=== PATIENT | female | born 1965 | race African-American/Black ===

== ENCOUNTER 2016-08-19 23:27 | Emergency (ER) | payer OTHER ==
[~2016-08-19] VITALS: Ht 170.2 cm; Wt 91.0 kg
[~2016-08-19 23:27] MED LIST: AMLO10TA4 PO; HYDR12.529 PO; MINO2.5T2 PO; ONDA4TAB51 PO; SERT50TA12 PO; SUCR1TAB PO
[2016-08-19] MEDS ORDERED: ALBUTEROL (0.083%) 2.5MG/3ML NEB HHN STA (23:46)
[2016-08-19] MEDS ORDERED: IPRATROPIUM BROMIDE (0.02%) 0.5MG/2.5ML NEB HHN STA (23:46)
[2016-08-19] MEDS ORDERED: PREDNISONE 20MG TABLET PO STA (23:46)
[2016-08-20 01:00] VITALS: BP 131/81
== END 2016-08-20 01:25 | disposition home or self-care (01) ==
LOC: ER 23:27
DX: J06.9 Acute upper respiratory infection, unspecified (principal); I10 Essential (primary) hypertension; K21.9 Gastro-esophageal reflux disease without esophagitis; F17.210 Nicotine dependence, cigarettes, uncomplicated; F12.10 Cannabis abuse, uncomplicated; Z98.890 Other specified postprocedural states; Z87.11 Personal history of peptic ulcer disease; Z88.8 Allergy status to other drugs, medicaments and biological substances; Z71.6 Tobacco abuse counseling
CPT/HCPCS: 71010; 94640; 99283; 99406; J7512; J7611; Z7610

== ENCOUNTER 2016-09-05 12:24 | Inpatient (IN) | payer OTHER ==
[~2016-09-05] VITALS: Ht 167.6 cm; Wt 90.7 kg
[2016-09-05] MEDS ORDERED: FAMOTIDINE 20MG/2ML VIAL IV ONE (12:45)
[2016-09-05] MEDS ORDERED: DICYCLOMINE HCL 10MG CAPSULE PO ONE (12:45)
[2016-09-05] MEDS ORDERED: VISCOUS LIDOCAINE 2% 15 ML UDC PO STA (12:45)
[2016-09-05] MEDS ORDERED: MAGNESIUM/ALUMINUM HYDROXIDE/SIMETHICONE 30ML UDC PO STA (12:45)
[2016-09-05] MEDS ORDERED: ONDANSETRON HCL 4MG/2ML VIAL IV STA (12:45)
[2016-09-05 12:58] LABS: BASOPHILS % 0.8 % (0.0-2.0); EOSINOPHILS % 4.6 % (0.0-5.0); HEMATOCRIT. 49.2 % (36.0-48.0); HEMOGLOBIN. 16.6 g/dL (12.0-16.0); LYMPHOCYTES % 55.6 % (20.0-50.0); MEAN CORPUSCULAR HEMOGLOBIN 27.6 pg (28.0-32.0); MEAN CORPUSCULAR HGB CONC 33.7 g/dL (31.0-37.0); MEAN CORPUSCULAR VOLUME 82.1 fL (81.0-99.0); MEAN PLATELET VOLUME 7.2 fl (7.4-10.4); MONOCYTES % 5.3 % (2.0-8.0); NEUTROPHILS % 33.7 % (40.0-76.0); PLATELET 453 x1000/uL (130-400); RED CELL DISTRIBUTION WIDTH 15.3 % (11.6-14.6); WHITE BLOOD COUNT 10.4 x1000/uL (4.5-11.0)
[2016-09-05 13:07] LABS: ALBUMIN 3.9 g/dL (3.4-5.0); ANION GAP 14; CALCIUM 9.7 mg/dL (8.5-10.1); CARBON DIOXIDE 24 mEq/L (21-32); CHLORIDE 108 mEq/L (98-107); ETHANOL BLOOD < 10 mg/dL; INDEX HEMOLYSI 4 (1-3); INDEX ICTERIC 1 (1-4); INDEX LIPEMIC 1 (1-3); LIPASE 116 IU/L (73-393); UREA NITROGEN BLOOD 8 mg/dL (7-21)
[2016-09-05 13:10] LABS: ALANINE AMINOTRANSFERASE 27 IU/L (13-61); eGFR > 60 mL/min (>60)
[2016-09-05 13:15] LABS: CLARITY URINE CLOUDY (CLEAR); COLOR URINE YELLOW (YELLOW); GLUCOSE URINE NEGATIVE (NEGATIVE); KETONES URINE NEGATIVE (NEGATIVE); LEUKOCYTE ESTERASE URINE NEGATIVE (NEGATIVE); NITRITE URINE NEGATIVE (NEGATIVE); OCCULT BLOOD URINE NEGATIVE (NEGATIVE); PROTEIN URINE TRACE (NEGATIVE); SPECIFIC GRAVITY URINE 1.017 (1.005-1.030)
[2016-09-05] MEDS ORDERED: ONDANSETRON HCL 4MG/2ML VIAL IV PRN ×2 (13:15→20:45)
[2016-09-05] MEDS: MORPHINE SULFATE 4 MG/ML CPJ (NOT FOR IM USE) IV PRN ×2 (13:24→15:33)
[2016-09-05 13:25] LABS: *AMPHETAMINES SCREEN URINE NEGATIVE (NEGATIVE); *BARBITURATES SCREEN URINE NEGATIVE (NEGATIVE); *BENZODIAZEPINES SCREEN URINE NEGATIVE (NEGATIVE); *COCAINE SCREEN URINE NEGATIVE (NEGATIVE); CANNABINOID URINE SCREEN PRESUMTIVE POSITIVE (NEGATIVE); ECSTASY MDMA SCREEN URINE NEGATIVE (NEGATIVE); METHADONE URINE SCREEN NEGATIVE (NEGATIVE); OPIATES URINE SCREEN NEGATIVE (NEGATIVE); PHENCYCLIDINE URINE SCREEN NEGATIVE (NEGATIVE)
[2016-09-05 13:27] LABS: WBC URINE 0-2 /hpf (0-2)
[2016-09-05 13:28] LABS: BACTERIA URINE 1+; RBC URINE NONE SEEN /hpf (0-2); SQUAMOUS EPITHELIAL CELL URINE 1+ /lpf (RARE/1+)
[2016-09-05] MEDS ORDERED: METOCLOPRAMIDE HCL 10MG/2ML VIAL IV ONE (14:15)
[2016-09-05] MEDS ORDERED: LABETALOL HCL 20MG/4ML CARPUJECT IV PRN ×2 (15:45→16:30)
[2016-09-05] MEDS ORDERED: LABETALOL 5MG/ML SYR 20 MG/4 ML SYRINGE IV PRN (16:30)
[2016-09-05 18:30] VITALS: BP 167/100
[2016-09-05] MEDS ORDERED: PANT40TA4 PO (19:47)
[2016-09-05] MEDS ORDERED: DICY10CA88 PO (19:47)
[2016-09-05 20:00] VITALS: BP 177/107
[2016-09-05] MEDS ORDERED: CLONIDINE 0.1MG TABLET PO PRN (20:45)
[2016-09-05] MEDS: HYDROMORPHONE HCL/PF 2MG/ML CPJ IV PRN (20:52)
[2016-09-05] MEDS ORDERED: ZOLPIDEM TARTRATE 5MG TABLET PO PRN (21:15)
[2016-09-05] MEDS ORDERED: CLONIDINE 0.2MG TABLET PO PRN (21:15)
[2016-09-05] MEDS: SUCRALFATE 1G TABLET PO SCH (22:14)
[2016-09-05] MEDS: DEXT 5%/0.45% NACL KCL 20MEQ/L 1,000 ML IV SCH (22:14)
[2016-09-05 22:32] VITALS: BP 170/100
[2016-09-06] VITALS: BP 128/88
[2016-09-06] MEDS: SUCRALFATE 1G TABLET PO SCH ×2 (02:53→08:26)
[2016-09-06 04:00] VITALS: BP 122/76
[2016-09-06 07:05] LABS: HEMATOCRIT 43.4 % (36.0-48.0); HEMOGLOBIN 14.3 g/dL (12.0-16.0); MEAN CORPUSCULAR HGB CONC 32.9 g/dL (31.0-37.0); MEAN CORPUSCULAR VOLUME 82.2 fL (81.0-99.0); PLATELET 367 x1000/uL (130-400); RED BLOOD CELL COUNT 5.28 mill/uL (4.2-5.4); RED CELL DISTRIBUTION WIDTH 14.8 % (11.6-14.6); WHITE BLOOD COUNT 11.8 x1000/uL (4.5-11.0)
[2016-09-06 08:00] VITALS: BP 145/94
[2016-09-06 08:08] LABS: ALANINE AMINOTRANSFERASE 22 IU/L (13-61); ALBUMIN 3.5 g/dL (3.4-5.0); ANION GAP 11; CALCIUM 8.9 mg/dL (8.5-10.1); CARBON DIOXIDE 26 mEq/L (21-32); CHLORIDE 107 mEq/L (98-107); HDL CHOLESTEROL 61 mg/dL (40-59); INDEX HEMOLYSI 1 (1-3); INDEX ICTERIC 1 (1-4); INDEX LIPEMIC 1 (1-3); LDL CHOLESTEROL 161 mg/dL (5-100); TRIGLYCERIDE 119 mg/dL (0-150); UREA NITROGEN BLOOD 10 mg/dL (7-21); eGFR > 60 mL/min (>60)
[2016-09-06 08:10] LABS: THYROID STIMULATING HORMONE 0.52 uIU/mL (0.36-3.74)
[2016-09-06] MEDS: HYDROMORPHONE HCL/PF 2MG/ML CPJ IV PRN ×2 (08:12→12:54)
[2016-09-06] MEDS: DEXT 5%/0.45% NACL KCL 20MEQ/L 1,000 ML IV SCH (08:25)
[2016-09-06] MEDS ORDERED: HYDROCHLOROTHIAZIDE 12.5MG CAPSULE PO SCH (09:00)
[2016-09-06] MEDS ORDERED: ENOXAPARIN 30MG/0.3ML SYR SUBCUT SCH (09:00)
[2016-09-06] MEDS ORDERED: ENOXAPARIN 40MG/0.4ML SYR SUBCUT SCH (09:00)
[2016-09-06] MEDS ORDERED: MINOXIDIL 2.5MG TABLET PO SCH (09:00)
[2016-09-06] MEDS ORDERED: SERTRALINE HCL 50MG TABLET PO SCH (09:00)
[2016-09-06] MEDS ORDERED: AMLODIPINE 10MG TABLET PO SCH (09:00)
[2016-09-06] MEDS ORDERED: FAMOTIDINE 20MG/2ML VIAL IV SCH (09:00)
[2016-09-06 12:00] VITALS: BP 150/92
[2016-09-06] MEDS: CLONIDINE HCL 0.1MG/24HR PATCH TD NR ×2 (12:30→14:16)
[2016-09-06 13:24] VITALS: BP 145/94
[2016-09-06] MEDS ORDERED: METOCLOPRAMIDE HCL 10MG/2ML VIAL IV SCH (18:00)
== END 2016-09-06 13:30 | disposition home or self-care (01) | DRG 251 ==
LOC: ER 12:35 → 5WST 18:44
PROVIDERS: ADMIT Internal Medicine; ATTEND Internal Medicine
DX: R10.9 Unspecified abdominal pain (principal); I10 Essential (primary) hypertension; K21.9 Gastro-esophageal reflux disease without esophagitis; K29.70 Gastritis, unspecified, without bleeding; Z88.8 Allergy status to other drugs, medicaments and biological substances
CPT/HCPCS: 36415; 80053; 80061; 80305; 81001; 81025; 83690; 84443; 85025; 85027; 96374; 96375; 96376; 99285; G0482; J1170; J1650; J2270; J2405; J2765; J3490; J7030

== ENCOUNTER 2019-05-01 06:19 | Emergency (ER) | payer OTHER ==
[~2019-05-01] VITALS: Ht 170.2 cm; Wt 90.0 kg
[~2019-05-01 06:19] MED LIST changes: +DICY10CA88 PO; +PANT40TA4 PO
[2019-05-01] MEDS ORDERED: IPRATROPIUM BROMIDE (0.02%) 0.5MG/2.5ML NEB HHN STA (08:59)
[2019-05-01] MEDS ORDERED: ALBUTEROL (0.083%) 2.5MG/3ML NEB HHN STA (08:59)
[2019-05-01] MEDS ORDERED: AZITHROMYCIN 500 MG in DEXT 5% WATER 250 ML IV SCH (09:00)
[2019-05-01] MEDS ORDERED: MAGNESIUM 2 G PREMIX 50 ML IV ONE (09:00)
[2019-05-01] MEDS ORDERED: DEXAMETHASONE 4MG/ML 1ML VIAL IV ONE (09:00)
[2019-05-01 09:19] LABS: HEMATOCRIT. 41.3 % (36.0-48.0); HEMOGLOBIN. 13.7 g/dL (12.0-16.0); MEAN CORPUSCULAR HEMOGLOBIN 27.1 pg (28.0-32.0); MEAN CORPUSCULAR VOLUME 81.5 fL (81.0-99.0); MEAN PLATELET VOLUME 7.4 fl (7.4-10.4); PLATELET 258 x1000/uL (130-400); RED BLOOD CELL COUNT 5.07 mill/uL (4.2-5.4); RED CELL DISTRIBUTION WIDTH 15.2 % (11.6-14.6)
[2019-05-01 09:24] LABS: CHLORIDE 105 mEq/L (98-107)
[2019-05-01 09:48] LABS: PLATELET ESTIMATE NORMAL
[2019-05-01] MEDS ORDERED: AMLODIPINE 5MG TABLET PO ONE (10:00)
[2019-05-01] MEDS ORDERED: METOCLOPRAMIDE HCL 10MG/2ML VIAL IV ONE (10:00)
[2019-05-01] MEDS ORDERED: KETOROLAC 15MG/ML VIAL IV ONE (10:00)
[2019-05-01 11:34] VITALS: BP 150/86
== END 2019-05-01 11:53 | disposition home or self-care (01) ==
LOC: ER 06:19
DX: J20.9 Acute bronchitis, unspecified (principal); R51 Headache; I10 Essential (primary) hypertension; F17.290 Nicotine dependence, other tobacco product, uncomplicated; Z88.8 Allergy status to other drugs, medicaments and biological substances; Z79.899 Other long term (current) drug therapy
CPT/HCPCS: 36415; 71045; 80053; 83880; 84484; 85025; 93005; 94644; 96365; 96375; 99285; 99406; J0456; J1100; J1885; J2765; J3475; J7060; J7611; Z7610

== ENCOUNTER 2019-05-04 00:33 | Emergency (ER) | payer OTHER ==
[~2019-05-04] VITALS: Ht 170.2 cm; Wt 91.0 kg
[2019-05-04] MEDS ORDERED: ONDANSETRON HCL 4MG/2ML INJ IV STA (01:13)
[2019-05-04] MEDS ORDERED: ACETAMINOPHEN 325MG TABLET PO STA (01:13)
[2019-05-04] MEDS ORDERED: SODIUM CHLORIDE 0.9% 1,000 ML IV ONE (01:13)
[2019-05-04] MEDS ORDERED: KETOROLAC 15MG/ML VIAL IV ONE (01:15)
[2019-05-04] MEDS ORDERED: CEFTRIAXONE 1 G PREMIX 50 ML IV ONE (01:15)
[2019-05-04] MEDS ORDERED: AZITHROMYCIN 500 MG in DEXT 5% WATER 250 ML IV ONE (01:15)
[2019-05-04 01:43] LABS: CHLORIDE 105 mEq/L (98-107)
[2019-05-04 01:44] LABS: PROTHROMBIN TIME 10.2 sec (9.6-11.0)
[2019-05-04 01:51] LABS: BASOPHILS % 0.8 % (0.0-2.0); EOSINOPHILS % 0.3 % (0.0-5.0); HEMATOCRIT. 47.3 % (36.0-48.0); HEMOGLOBIN. 15.9 g/dL (12.0-16.0); LYMPHOCYTES % 24.2 % (20.0-50.0); MEAN CORPUSCULAR HEMOGLOBIN 27.2 pg (28.0-32.0); MEAN CORPUSCULAR VOLUME 80.9 fL (81.0-99.0); MONOCYTES % 10.4 % (2.0-8.0); NEUTROPHILS % 64.3 % (40.0-76.0); PLATELET 294 x1000/uL (130-400); RED BLOOD CELL COUNT 5.85 mill/uL (4.2-5.4); RED CELL DISTRIBUTION WIDTH 15.1 % (11.6-14.6)
[2019-05-04 02:16] LABS: CLARITY URINE CLEAR (CLEAR); COLOR URINE YELLOW (YELLOW); KETONES URINE NEGATIVE (NEGATIVE); LEUKOCYTE ESTERASE URINE NEGATIVE (NEGATIVE); NITRITE URINE NEGATIVE (NEGATIVE); OCCULT BLOOD URINE TRACE (NEGATIVE); PH URINE 5.5 (4.5-8.0); PROTEIN URINE NEGATIVE (NEGATIVE); SPECIFIC GRAVITY URINE 1.017 (1.005-1.030); UROBILINOGEN URINE 0.2 E.U./dL (0.2-1.0)
[2019-05-04 02:22] LABS: BG BASE EXCESS 1.3 mmol/L (-2.0-2.0); BG CARBOXYHEMOGLOBIN 1.7 % (0.5-1.5); BG DEOXYHEMOGLOBIN 12.4 % (0.0-5.0); BG FRACTION INSPIRED OXYGEN 21; BG HCO3 ACT 24.3 mmol/L (22.0-26.0); BG METHEMOGLOBIN 0.2 % (0.0-1.5); BG OXYGEN SATURATION 87.4 % (92.0-98.5); BG OXYHEMOGLOBIN 85.7 % (94.0-97.0); BG PCO2 34.2 mmHg (35.0-45.0); BG PO2 49.2 mmHg (75.0-100.0); BG SAMPLE SITE RIGHT RADIAL; BG TOTAL HEMOGLOBIN 15.4 g/dL (12.0-18.0); BG VENT MODE ROOM AIR
[2019-05-04] MEDS ORDERED: FENTANYL CITRATE/PF 50MCG/ML 2ML VIAL IV NR (03:00)
[2019-05-04] MEDS ORDERED: IOHEXOL-350 100 ML BOTTLE ONE (06:01)
[2019-05-04] MEDS ORDERED: IPRATROPIUM/ALBUTEROL 0.5-3(2.5)MG/3ML NEB HHN PRN (11:15)
[2019-05-04] MEDS: HYDROCODONE/ACETAMINOPHEN 5/325MG TABLET PO PRN ×2 (11:26→19:09)
[2019-05-04] MEDS ORDERED: ONDANSETRON HCL 4MG/2ML INJ ONE (19:23)
[2019-05-04] MEDS ORDERED: ONDANSETRON HCL 4MG/2ML INJ IV ONE (19:30)
[2019-05-04 19:44] VITALS: BP 122/76
[2019-05-05 09:49] LABS: BG BASE EXCESS 1.1 mmol/L (-2.0-2.0); BG CARBOXYHEMOGLOBIN 1.5 % (0.5-1.5); BG DEOXYHEMOGLOBIN 10.9 % (0.0-5.0); BG FRACTION INSPIRED OXYGEN 24; BG HCO3 ACT 25.1 mmol/L (22.0-26.0); BG METHEMOGLOBIN 0.3 % (0.0-1.5); BG OXYGEN SATURATION 88.9 % (92.0-98.5); BG OXYHEMOGLOBIN 87.3 % (94.0-97.0); BG PCO2 37.9 mmHg (35.0-45.0); BG PH 7.439 (7.350-7.450); BG PO2 53.9 mmHg (75.0-100.0); BG SAMPLE SITE RIGHT RADIAL; BG TOTAL HEMOGLOBIN 14.9 g/dL (12.0-18.0); BG VENT MODE NASAL CANNULA
== END 2019-05-04 19:45 | disposition home or self-care (01) ==
LOC: ER 00:33 → EDBEDREQSVC 03:06 → EDBEDREQ 03:06 → EDBEDREQTM 03:06 → CANBEDREQ 17:46 → ER 19:45
DX: J44.1 Chronic obstructive pulmonary disease with (acute) exacerbation (principal); R09.02 Hypoxemia; J84.9 Interstitial pulmonary disease, unspecified; I10 Essential (primary) hypertension; E11.9 Type 2 diabetes mellitus without complications; K21.9 Gastro-esophageal reflux disease without esophagitis; E78.5 Hyperlipidemia, unspecified; F99 Mental disorder, not otherwise specified; F17.210 Nicotine dependence, cigarettes, uncomplicated; Z88.1 Allergy status to other antibiotic agents; Z88.5 Allergy status to narcotic agent; Z88.8 Allergy status to other drugs, medicaments and biological substances
CPT/HCPCS: 36415; 36600; 71045; 71275; 80053; 81003; 82375; 82805; 83605; 83880; 84145; 84484; 85025; 85610; 87040; 87804; 93005; 94640; 96365; 96366; 96367; 96375; 96376; 99284; J0456; J0696; J1885; J2405; J3010; J7030; J7060; J7620; Q9967; Z7610

== ENCOUNTER 2020-03-20 07:52 | Emergency (ER) | payer OTHER ==
[~2020-03-20] VITALS: Ht 165.1 cm; Wt 102.0 kg
[2020-03-20] MEDS ORDERED: ONDANSETRON HCL 4MG/2ML INJ IV STA ×2 (10:05→11:33)
[2020-03-20] MEDS ORDERED: KETOROLAC 15MG/ML VIAL IV ONE (10:15)
[2020-03-20] MEDS ORDERED: SODIUM CHLORIDE 0.9% 1,000 ML IV ONE (10:15)
[2020-03-20 10:35] LABS: HEMATOCRIT. 48.2 % (36.0-48.0); HEMOGLOBIN. 16.1 g/dL (12.0-16.0); MEAN CORPUSCULAR HEMOGLOBIN 27.3 pg (28.0-32.0); MEAN CORPUSCULAR VOLUME 81.5 fL (81.0-99.0); MEAN PLATELET VOLUME 7.1 fl (7.4-10.4); PLATELET 307 x1000/uL (130-400); RED BLOOD CELL COUNT 5.91 mill/uL (4.2-5.4); RED CELL DISTRIBUTION WIDTH 15.1 % (11.6-14.6)
[2020-03-20 10:44] LABS: PROTHROMBIN TIME 10.4 sec (9.6-11.0)
[2020-03-20 10:52] LABS: CHLORIDE 104 mEq/L (98-107)
[2020-03-20 11:18] LABS: PLATELET ESTIMATE NORMAL
[2020-03-20] MEDS ORDERED: MORPHINE SULFATE 4 MG/ML CPJ (NOT FOR IM USE) IV STA (11:33)
[2020-03-20] MEDS ORDERED: CEFTRIAXONE 1 G PREMIX 50 ML IV ONE (12:30)
[2020-03-20] MEDS ORDERED: MORPHINE SULFATE 2 MG/ML CPJ (NOT FOR IM USE) IV ONE (15:30)
[2020-03-20 15:42] VITALS: BP 163/91
== END 2020-03-20 17:07 | disposition short-term general hospital (02) ==
LOC: ER 07:52
DX: K92.2 Gastrointestinal hemorrhage, unspecified (principal); D72.825 Bandemia; I10 Essential (primary) hypertension; Z79.899 Other long term (current) drug therapy; Z88.8 Allergy status to other drugs, medicaments and biological substances; Z88.6 Allergy status to analgesic agent; Z86.39 Personal history of other endocrine, nutritional and metabolic disease; Z87.11 Personal history of peptic ulcer disease; Z87.09 Personal history of other diseases of the respiratory system
CPT/HCPCS: 36415; 71045; 74176; 80053; 85025; 85610; 86850; 86900; 86901; 93005; 96361; 96365; 96375; 96376; 99285; J0696; J1885; J2270; J2405; J7030

== ENCOUNTER 2020-03-23 02:50 | Emergency (ER) | payer OTHER ==
[~2020-03-23] VITALS: Ht 170.2 cm; Wt 100.0 kg
[2020-03-23] MEDS ORDERED: MAGNESIUM/ALUMINUM HYDROXIDE/SIMETHICONE 30ML UDC PO STA (03:02)
[2020-03-23] MEDS ORDERED: VISCOUS LIDOCAINE 2% 15 ML UDC PO STA (03:02)
[2020-03-23] MEDS ORDERED: METOCLOPRAMIDE HCL 5MG TABLET PO ONE (03:15)
[2020-03-23 03:23] LABS: BASOPHILS % 0.6 % (0.0-2.0); CHLORIDE 109 mEq/L (98-107); EOSINOPHILS % 0.1 % (0.0-5.0); HEMATOCRIT. 45.7 % (36.0-48.0); HEMOGLOBIN. 15.4 g/dL (12.0-16.0); LYMPHOCYTES % 20.8 % (20.0-50.0); MEAN CORPUSCULAR HEMOGLOBIN 27.1 pg (28.0-32.0); MEAN CORPUSCULAR VOLUME 80.6 fL (81.0-99.0); MEAN PLATELET VOLUME 7.5 fl (7.4-10.4); MONOCYTES % 9.6 % (2.0-8.0); NEUTROPHILS % 68.9 % (40.0-76.0); PLATELET 264 x1000/uL (130-400); RED BLOOD CELL COUNT 5.67 mill/uL (4.2-5.4); RED CELL DISTRIBUTION WIDTH 14.9 % (11.6-14.6)
[2020-03-23 03:27] LABS: ETHANOL BLOOD < 10 mg/dL
[2020-03-23 04:44] VITALS: BP 137/78
== END 2020-03-23 04:40 | disposition home or self-care (01) ==
LOC: ER 02:58
DX: G89.29 Other chronic pain (principal); R10.9 Unspecified abdominal pain; I10 Essential (primary) hypertension; Z88.8 Allergy status to other drugs, medicaments and biological substances; Z88.1 Allergy status to other antibiotic agents; Z88.6 Allergy status to analgesic agent; Z79.899 Other long term (current) drug therapy
CPT/HCPCS: 36415; 80053; 80320; 83690; 85025; 99284; J8597; G0480

== ENCOUNTER 2020-12-06 18:08 | Emergency (ER) | payer OTHER ==
[~2020-12-06] VITALS: Ht 165.1 cm; Wt 113.0 kg
[~2020-12-06 18:08] MED LIST changes: -PANT40TA4 PO; +PANT40TA51 PO
[2020-12-06 18:12] VITALS: BP 154/101
[2020-12-06] MEDS ORDERED: IBUP-2028 MT (19:29)
[2020-12-06] MEDS ORDERED: IBUPROFEN 400MG TABLET PO ONE (19:30)
== END 2020-12-06 21:07 | disposition home or self-care (01) ==
LOC: ER 18:08
DX: S83.8X2A Sprain of other specified parts of left knee, initial encounter (principal); S93.492A Sprain of other ligament of left ankle, initial encounter; X58.XXXA Exposure to other specified factors, initial encounter; V49.49XA Driver injured in collision with other motor vehicles in traffic accident, initial encounter; Y93.89 Activity, other specified; Y92.488 Other paved roadways as the place of occurrence of the external cause
CPT/HCPCS: 73560; 73610; 99284

== ENCOUNTER 2022-03-24 22:16 | Emergency (ER) | payer MEDICAID, OTHER ==
[~2022-03-24] VITALS: Ht 170.2 cm; Wt 107.0 kg
[~2022-03-24 22:16] MED LIST changes: +IBUP-2028 MT; +SERT-422 PO; -SERT50TA12 PO
[2022-03-24] MEDS ORDERED: METOCLOPRAMIDE HCL 10MG/2ML VIAL IV STA (22:56)
[2022-03-24] MEDS ORDERED: PANTOPRAZOLE SODIUM 40 MG/VIAL IV STA (22:56)
[2022-03-24] MEDS ORDERED: ONDANSETRON HCL 4MG/2ML INJ IV STA (22:56)
[2022-03-24] MEDS ORDERED: VISCOUS LIDOCAINE 2% 15 ML UDC PO STA (22:56)
[2022-03-24] MEDS ORDERED: MAGNESIUM/ALUMINUM HYDROXIDE/SIMETHICONE 30ML UDC PO STA (22:56)
[2022-03-24] MEDS ORDERED: HALOPERIDOL LACTATE 5MG/ML VIAL IM ONE (23:00)
[2022-03-24] MEDS ORDERED: SODIUM CHLORIDE 0.9% 1,000 ML IV ONE (23:00)
[2022-03-24 23:50] LABS: BASOPHILS % 0.4 % (0.0-2.0); EOSINOPHILS % 0.5 % (0.0-5.0); HEMATOCRIT. 44.6 % (36.0-48.0); HEMOGLOBIN. 14.9 g/dL (12.0-16.0); LYMPHOCYTES % 21.3 % (20.0-50.0); MEAN CORPUSCULAR HEMOGLOBIN 27.6 pg (28.0-32.0); MEAN CORPUSCULAR VOLUME 82.7 fL (81.0-99.0); MEAN PLATELET VOLUME 7.7 fl (7.4-10.4); MONOCYTES % 8.1 % (2.0-8.0); NEUTROPHILS % 69.7 % (40.0-76.0); PLATELET 349 x1000/uL (130-400); RED BLOOD CELL COUNT 5.39 mill/uL (4.2-5.4); RED CELL DISTRIBUTION WIDTH 15.7 % (11.6-14.6)
[2022-03-25 00:06] LABS: CHLORIDE 114 mEq/L (98-107)
[2022-03-25] MEDS ORDERED: AZITHROMYCIN 500 MG in DEXT 5% WATER 250 ML IV SCH (00:15)
[2022-03-25] MEDS ORDERED: CEFTRIAXONE 1 G PREMIX 50 ML IV ONE (00:15)
[2022-03-25] MEDS ORDERED: ONDANSETRON HCL 4MG/2ML INJ IV NR ×2 (00:30→05:00)
[2022-03-25] MEDS ORDERED: AZITHROMYCIN 500MG/250ML 250 ML IV NR (00:45)
[2022-03-25 01:14] LABS: ETHANOL BLOOD < 10 mg/dL
[2022-03-25] MEDS ORDERED: ACETAMINOPHEN 500MG TABLET PO NR (02:15)
[2022-03-25] MEDS ORDERED: HALOPERIDOL LACTATE 5MG/ML VIAL IM NR (02:15)
[2022-03-25 05:30] VITALS: BP 168/93
[2022-03-25 07:58] LABS: CLARITY URINE CLEAR (CLEAR); COLOR URINE PALE YELLOW (YELLOW)
[2022-03-25 07:59] LABS: KETONES URINE TRACE (NEGATIVE); LEUKOCYTE ESTERASE URINE NEGATIVE (NEGATIVE); NITRITE URINE NEGATIVE (NEGATIVE); OCCULT BLOOD URINE TRACE (NEGATIVE); PH URINE 7.5 (4.5-8.0); PROTEIN URINE NEGATIVE (NEGATIVE); SPECIFIC GRAVITY URINE 1.016 (1.005-1.030); UROBILINOGEN URINE 0.2 E.U./dL (0.2-1.0)
[2022-03-25 15:19] LABS: *AMPHETAMINES SCREEN URINE NEGATIVE (NEGATIVE); *BARBITURATES SCREEN URINE NEGATIVE (NEGATIVE); *BENZODIAZEPINES SCREEN URINE NEGATIVE (NEGATIVE); *COCAINE SCREEN URINE NEGATIVE (NEGATIVE); CANNABINOID URINE SCREEN PRESUMTIVE POSITIVE (NEGATIVE); METHADONE URINE SCREEN NEGATIVE (NEGATIVE); OPIATES URINE SCREEN PRESUMTIVE POSITIVE (NEGATIVE); PHENCYCLIDINE URINE SCREEN NEGATIVE (NEGATIVE)
== END 2022-03-25 06:05 | disposition home or self-care (01) ==
LOC: ER 22:16
DX: K29.70 Gastritis, unspecified, without bleeding (principal); I10 Essential (primary) hypertension; F17.290 Nicotine dependence, other tobacco product, uncomplicated; F12.10 Cannabis abuse, uncomplicated
CPT/HCPCS: 36415; 71045; 74176; 80053; 80305; 80320; 81003; 83605; 83690; 84145; 85025; 87040; 93005; 96365; 96366; 96368; 96372; 96375; 96376; 99285; 99406; C9113; J0456; J0696; J1630; J2405; J2765; J7030; J7060; G0480

== ENCOUNTER 2023-04-12 19:21 | Emergency (ER) | payer OTHER, MEDICAID ==
[~2023-04-12] VITALS: Ht 167.6 cm; Wt 109.0 kg
[~2023-04-12 19:21] MED LIST changes: +DICY-18 PO; -DICY10CA88 PO
[2023-04-12 19:33] VITALS: BP 191/111; PULSE 86; RESP 18; TEMP 98.5; O2SAT 100
[2023-04-12] MEDS ORDERED: ONDANSETRON 4MG ODT PO STA (20:00)
== END 2023-04-12 22:57 | disposition left against medical advice (07) ==
LOC: ER 19:21
DX: R10.9 Unspecified abdominal pain (principal); I10 Essential (primary) hypertension; F12.10 Cannabis abuse, uncomplicated; Z79.899 Other long term (current) drug therapy
CPT/HCPCS: 82962; 99283